=== PATIENT | female | born 1950 | race Asian ===

== ENCOUNTER 2017-09-11 14:22 | Emergency (ER) | payer OTHER ==
--- NOTE | 2017-09-11 15:23 | CPEKG ---
Heart Rate: 79 RR Interval: 759 P-R Interval: 156 QRSD Interval: 90 QT Interval: 376 QTC Interval: 432 P [place]: 34 QRS [place]: 51 T Wave [place]: 47 EKG Severity - ABNORMAL ECG - EKG Impression: SINUS RHYTHM EKG Impression: PROBABLE INFERIOR INFARCT, OLD Electronically Signed By: Hernan Cantu 11-Sep-2017 17:27:00
[2017-09-11 15:29] LABS: PLATELET COUNT 269 10^3/uL (150-400)
--- NOTE | 2017-09-11 15:37 | EDPHY ---
H & P Stated Complaint: wheezinng and left leg pain x 4 days Time Seen by Provider: 09/11/17 14:59 HPI/ROS: This patient describes concurrent onset of leg pain wheezing over the past 4 days. She explains that while doing house chores 4 days prior to arrival without much significant physical exertion she noticed onset of left knee pain "gnawing" & achy in nature 2/10 in intensity at baseline increases to 5/10 with walking associated with left calf pain and occasionally extending to the left posterior thigh. At the same time she noticed onset of wheezing. She reports this wheezy is most notable when she is lying flat. She denies any other exacerbating factors. The patient does not recall having pain in the left lower extremity in the past. Again no acute injuries. The pain is been intermittent for the past 4 days and not present constantly. Her daughter brought her here by private vehicle for further evaluation of her symptoms. ROS: Constitutional: No fevers no significant fatigue. HEENT: No URI symptoms. No sore throat Pulmonary: No coughing. She denies any significant shortness of breath despite the wheeze. She denies any pleuritic pain. No other complaints Cardiovascular: No chest pain heart palpitations. She has noticed leg swelling associated with her symptoms. No paroxysmal nocturnal dyspnea. GI: No abdominal pain, nausea or vomiting : No complaints integumentary: No skin rash to the left lower extremity. No skin rash elsewhere. No diaphoresis. 10 point ROS is otherwise negative. Source: Patient Exam Limitations: No limitations, Language barrier (Language line used for translation. Patient's daughter also helped with history and she is bilingual) - Personal History Current Tetanus Diphtheria and Acellular Pertussis (TDAP): Yes Tetanus Vaccine Date: 2012 - Medical/Surgical History PMH: Hypertension Gout-attacks in her toes. She has not had a gout attack in her knee before. Hx Asthma: No Hx Chronic Respiratory Disease: No Hx Diabetes: No Hx Cardiac Disease: No Hx Renal Disease: No Hx Cirrhosis: No Hx Alcoholism: No Hx HIV/AIDS: No Hx Splenectomy or Spleen Trauma: No Other PMH: tubal ligation,. NASAL DUCT BLOCKED, SILICON TUBE PLACED THEN REMOVED D/T FAILED PROCEDURE 2011 - Family History Significant Family History: No pertinent family hx - Social History Smoking Status: Never smoked Alcohol Use: None Drug Use: None Additional Social History: She does admit increased meat intake over the past few days to celebrate her daughter's graduation from [employer] - Physical Exam Exam: General Appearance: Pleasant 67-year-old female Alert, no distress. Eyes: Pupils equal and round no pallor or injection. ENT, Mouth: Mucous membranes moist. Respiratory: There are no retractions, lungs are clear to auscultation. Cardiovascular: Regular rate and rhythm. No murmur gallop rub. No JVD. No peripheral edema. Gastrointestinal: Abdomen is soft and nontender, no masses, bowel sounds normal. Neurological: GCS of 15 without focal deficits Skin: Warm and dry, no rashes. Musculoskeletal: Neck is supple nontender. Extremities are symmetrical, full range of motion. Psychiatric: Mood and affect are normal DIFFERENTIAL DIAGNOSIS: After history and physical exam differential diagnosis was considered for gouty flare, seasonal allergies with wheeze, reactive airway disease, pulmonary embolism with DVT, early congestive heart failure, bronchitis , leg strain, osteoarthritis, myocardial ischemic disease Constitutional: Initial Vital Signs Temperature (C) 36.8 C 09/11/17 14:30 Heart Rate 81 09/11/17 14:30 Respiratory Rate 20 09/11/17 14:30 Blood Pressure 145/89 H 09/11/17 14:30 O2 Sat (%) 94 09/11/17 14:30 O2 Delivery Mode Room Air Allergies/Adverse Reactions: No Known Allergies Allergy (Verified 09/11/17 14:36) Home Medications: Medication Instructions Recorded Lisinopril 05/10/14 ASPIRIN 03/04/16 Allopurinol 03/04/16 Albuterol Hfa Anes Only [Proair 2 puffs IH Q4 PRN #1 mdi 09/11/17 Hfa Icu (*)] Allopurinol [Allopurinol 100 MG 100 mg PO DAILY #14 tab 09/11/17 (*)] Fluticasone Hfa 220 Mcg [Flovent 2 puffs IH DAILY #1 mdi 09/11/17 220 MCG Hfa MDI (*)] Indomethacin [Indocin 25 mg (RX)] 50 mg PO TID PRN #50 cap 09/11/17 Lisinopril 10 mg PO DAILY #14 tablet 09/11/17 Medical Decision Making - Diagnostics EKG Interpretation: 12 lead EKG performed at 3:21 p.m. Reveals sinus rhythm at 79 Intervals: Normal throughout [place]: Normal throughout ST segments are notable for Q-waves in lead 3 question old infarct without acute ST abnormalities Overall assessment sinus rhythm with probable old inferior infarct Imaging Results: Two view chest x-ray: Reactive airway disease-mild without focal infiltrates. Radiologist also notes cardiomegaly without failure. Imaging: I viewed and interpreted images myself ED Course/Re-evaluation: Studies: Initial peak flow low at 325 with predicted of 410. CBC is normal, D-dimer is normal Albuterol nebulizer with decreased dyspnea and sense of wheezing. Discussion: Patient presented with leg cramps and wheezing warranting DVT/PE rule out. With low risk of DVT in terms of risk factor profile and negative D- dimer, we have effectively ruled out DVT/PE. Her EKG revealed no evidence of acute ischemia. She does have inferior cues that suggests possibility of previous inferior CT, but normal BNP today and lack of other findings for CHF effectively rule out that diagnosis. After further discussion with patient and daughter, there is a history of reactive airway disease in this patient that has not been formally diagnosed but suspected by their descriptions and I think that today's wheezing and diminished peak flows attributable seasonal allergies with wheeze and mild dyspnea. I think that her leg pain is due to leg strain. I counseled him regarding this. Given her EKG showing potential prior CT, I recommend that she follow up with Cardiology for further evaluation as an outpatient. The understand the need to return emergency department should she develop any worsening of her symptoms despite treatment plan of albuterol and analgesics. I also recommended Flovent. - Data Points Laboratory Results: Laboratory Results 09/11/17 15:25 09/11/17 15:25 Medications Given: Discontinued Medications Albuterol/Ipratropium (Duoneb) 3 ml EDNOW ONE Stop: 09/11/17 16:19 Last Admin: 09/11/17 16:24 Dose: 3 ml Departure - Departure Disposition: Home, Routine, Self-Care Clinical Impression: Reactive airway disease, Leg pain, left, Knee pain, left Condition: Good Instructions: Reactive Airways Disease (ED) Additional Instructions: Diagnosis: 1. Reactive airway disease exacerbation 2. Knee and leg pain Plan: Flovent steroid inhaler 2 puffs daily for the next 7-10 days or until your peak flow returns to baseline. Albuterol inhaler with spacer for cough, wheeze or shortness of breath. For knee pain, you may have a mild gouty flare. Consider cutting back on meat intake this week and using Indocin anti-inflammatory as well as Tylenol for pain control as needed. If you're not improving with this regimen, then consider follow up with the orthopedic physician listed below. Also, call the animal cruelty investigator listed below to arrange follow-up appointment for to consider some out patient workup of your heart. Return emergency department for any significant worsening despite treatment plan Referrals: KATY GONZALEZ NP [Primary Care Provider] - As per Instructions Luis Antonio Graham MD [Medical Doctor] - As per Instructions Raquel Caldwell MD [Medical Doctor] - As per Instructions Prescriptions: Albuterol Hfa Anes Only [Proair Hfa Icu (*)] 2 puffs IH Q4 PRN #1 mdi PRN Reason: Wheezing Allopurinol [Allopurinol 100 MG (*)] 100 mg PO DAILY #14 tab Fluticasone Hfa 220 Mcg [Flovent 220 MCG Hfa MDI (*)] 2 puffs IH DAILY #1 mdi Indomethacin [Indocin 25 mg (RX)] 50 mg PO TID PRN #50 cap PRN Reason: pain Lisinopril 10 mg PO DAILY #14 tablet
[2017-09-11] MEDS ORDERED: IPRATROPIUM/ALBUTEROL 3 ML DEYVIAL IH ONE (16:18)
[2017-09-11 17:09] VITALS: BP 136/77
== END 2017-09-11 17:00 | disposition home or self-care (01) ==
LOC: CED 14:22
DX: J45.909 Unspecified asthma, uncomplicated (principal); M25.562 Pain in left knee; M79.605 Pain in left leg; I10 Essential (primary) hypertension; Z79.82 Long term (current) use of aspirin
CPT/HCPCS: 71046-PO; 80048-PO; 83880-PO; 84550-PO; 85025-PO; 85378-PO

== ENCOUNTER 2018-10-27 16:21 | Emergency (ER) | payer OTHER | END 2018-10-27 18:40 | disposition home or self-care (01) | LOC: CED 16:21 ==